=== PATIENT | female | born 1955 | race Caucasian/White ===

== ENCOUNTER 2021-05-12 08:11 | Outpatient (CLI) | payer OTHER ==
[~2021-05-12 08:11] MED LIST: ACETAMINOOPHEN-1 TAB PO; CATAFLAM50 MG PO; CIPRO500 MG/5 M PO; PREVACID30 MG PO; TANDEM PLUS PO; URETRON D/S TAB1 TAB PO
== END 2021-05-12 08:18 | disposition home or self-care (01) ==
LOC: RX STUDY 08:11
PROVIDERS: ATTEND Internal Medicine Gastroenterology
DX: K57.92 Diverticulitis of intestine, part unspecified, without perforation or abscess without bleeding (principal)

== ENCOUNTER 2022-07-02 09:49 | Outpatient (CLI) | payer OTHER | END 2022-07-02 09:52 | disposition home or self-care (01) | LOC: SONOGRAMA 09:49 | PROVIDERS: ATTEND Pathology Anatomic Pathology & Clinical Pathology | DX: D44.0 Neoplasm of uncertain behavior of thyroid gland (principal); D34 Benign neoplasm of thyroid gland; E04.9 Nontoxic goiter, unspecified; E07.9 Disorder of thyroid, unspecified; E04.1 Nontoxic single thyroid nodule ==

== ENCOUNTER 2022-11-16 09:39 | Outpatient (CLI) | payer OTHER | END 2022-11-16 09:41 | disposition home or self-care (01) | LOC: SONOGRAMA 09:39 | PROVIDERS: ATTEND Pathology Anatomic Pathology & Clinical Pathology | DX: D11.9 Benign neoplasm of major salivary gland, unspecified (principal) ==

== ENCOUNTER 2023-07-08 09:56 | Outpatient (CLI) | payer OTHER | END 2023-07-08 10:00 | disposition home or self-care (01) | LOC: SONOGRAMA 09:56 | PROVIDERS: ATTEND Pathology Anatomic Pathology & Clinical Pathology | DX: D34 Benign neoplasm of thyroid gland (principal); E07.89 Other specified disorders of thyroid; C73 Malignant neoplasm of thyroid gland; D44.0 Neoplasm of uncertain behavior of thyroid gland ==